=== PATIENT | female | born 1975 | race Caucasian/White ===

== ENCOUNTER 2018-08-02 10:40 | Day surgery (SDC) | payer BC ==
[~2018-08-02 10:40] MED LIST: ACETAMINOPHEN 1,000 MG/100 ML BTL IV ONE; CLINDAMYCIN 600MG/50ML PREMIX 600 MG/50 ML BAG IVPB ONE
[2018-08-02] MEDS ORDERED: FENTANYL PF 100MCG/2ML VIAL IV ONE (10:41)
[2018-08-02] MEDS ORDERED: LIDOCAINE 2% MDV (20MG/ML) 20ML VIAL IV ONE (10:41)
[2018-08-02] MEDS ORDERED: MORPHINE SULFATE 10 MG/ML VIAL IVP ONE (10:41)
[2018-08-02] MEDS ORDERED: PROPOFOL 10 MG/ML VIAL IV ONE (10:41)
[2018-08-02] MEDS ORDERED: ONDANSETRON HCL IV 4 MG/2 ML VIAL IVP ONE (10:41)
[2018-08-02] MEDS ORDERED: SEVOFLURANE 250 ML INH ONE (10:41)
[2018-08-02] MEDS ORDERED: METHYLPREDNISOLONE 80MG/VIAL IM ONE (13:45)
[2018-08-02] MEDS ORDERED: BUPIVACAINE 0.25% W/EPI MPF 30ML VIAL SQ ONE (13:45)
--- NOTE | 2018-08-05 19:52 | Operative Note ---
DATE OF SURGERY: 08/02/2018. PREOPERATIVE DIAGNOSES: 1. LEFT KNEE STATUS POST ACL RECONSTRUCTION ARTHROSIS. 2. MENISCUS TEAR. POSTOPERATIVE DIAGNOSES: 1. LEFT KNEE STATUS POST ACL RECONSTRUCTION ARTHROSIS. 2. MENISCUS TEAR. PROCEDURE: 1. DIAGNOSTIC ARTHROSCOPY. 2. ARTHROSCOPIC PARTIAL POSTERIOR AND MIDDLE HORN LATERAL MENISCECTOMIES. 3. ARTHROSCOPIC DEBRIDEMENT AND CHONDROPLASTY OF THE LATERAL FEMORAL CONDYLE. 4. ARTHROSCOPIC DEBRIDEMENT AND CHONDROPLASTY OF THE PATELLA. SURGEON: BRINDA ALVAREZ M.D. ANESTHESIA: GENERAL ENDOTRACHEAL. COMPLICATIONS: NONE. BLOOD LOSS: MINIMAL. OPERATIVE FINDINGS: A complex shredded tear involving the entire posterior and middle horns of the lateral meniscus. They were completely removed. The anterior horn was still intact. ACL reconstruction was somewhat lax but still intact. The medial compartment was basically normal with some moderate chondromalacia and the meniscus here intact. The patellofemoral compartment had some grade 2 chondromalacia on the central portion of the patella. INDICATIONS FOR OPERATION: This is a 43-year-old female who is status post ACL reconstruction of the left knee a few years ago. She developed persistent pain and mechanical symptoms in her knee and wished to proceed with arthroscopic surgery. She failed nonoperative treatment. I explained the risks and benefits thoroughly in detail for her diagnosis and procedures including but not limited to infection, nerve injury, vessel injury, persistent pain, stiffness, numbness and tingling in her knee, recurrence of meniscus tear, recurrence of instability and the fact that she has arthrosis of the knee and that the procedure will not cure that condition and could require further even procedures and all of her questions were answered. Rehab and course were outlined and she agreed to proceed. PROCEDURE: The patient brought to O.R. and placed in the supine position. A leg cancino was previously applied. The left lower extremity and knee were prepped and draped in sterile fashion. The left knee was prepped again with ChloraPrep after it was draped. Intraoperative time-out was performed. Preoperatively, the exam revealed full knee range of motion. There was a mild effusion. She had about a 1+ Juliet's. Anterior drawer had a good endpoint. Minimal pivot shift. A standard superior lateral inflow portal was established. Inferior medial outflow portal was established. Diagnostic arthroscopy was performed. The suprapatellar pouch was normal. The medial gutter had some synovitis. It was otherwise normal. The medial compartment when thoroughly inspected had mild grade 1 chondromalacia of the medial femoral condyle. The meniscus here was intact. The intercondylar notch was basically normal. Post ACL reconstruction. The ACL reconstruction was intact. It was somewhat lax. PCL was intact. The lateral compartment revealed a complex shredded tear of the middle and posterior horns of the lateral meniscus. We used a combination again of basket, biter, and shaver and basically removed the entire posterior and middle horns. There was significant damage to this portion of the meniscus. There was some chondromalacia as well in the lateral femoral condyle. We debrided that lightly with a shaver. The lateral gutter was normal. The patellofemoral compartment had some mild grade 2 chondromalacia on the undersurface of the patella. We debrided that with a shaver. It was otherwise normal. This completed our procedures. The scope and equipment were removed. We injected the knee with 0.5% Marcaine with Epinephrine, 80 mg DepoMedrol, and Exparel. Sterile dressing applied. REJI wrap. The patient tolerated the procedures well. No intraoperative complications. All sponge, needle, and blade counts correct. Recovery Room stable, neurovascularly intact. She will be discharged as an outpatient, have [facility] Therapy Nurse, and follow-up in two weeks. cc: Dr. Tiffany Osorio JOB NUMBER: [id number] [facility]
== END 2018-08-02 15:00 | disposition home or self-care (01) ==
LOC: SUR 10:40
PROVIDERS: ATTEND Orthopaedic Surgery
DX: S83.272A Complex tear of lateral meniscus, current injury, left knee, initial encounter (principal)
CPT/HCPCS: 29881; 01400; 81025; J2405; J3010; J2270; J1040